=== PATIENT | female | born 1945 | race African-American/Black ===

== ENCOUNTER 2018-06-05 13:43 | Inpatient (IN) | payer OTHER ==
[~2018-06-05] VITALS: Ht 167.6 cm; Wt 130.0 kg
[2018-06-05] MEDS ORDERED: SODIUM CHLORIDE 0.9% 1,000 ML IV ONE (14:39)
[2018-06-05] MEDS ORDERED: ONDANSETRON HCL 4MG/2ML INJ IV STA (14:39)
[2018-06-05] MEDS ORDERED: HYDRALAZINE 20MG/ML VIAL IV ONE ×2 (14:45→17:00)
[2018-06-05 15:06] LABS: BASOPHILS % 0.9 % (0.0-2.0); EOSINOPHILS % 3.5 % (0.0-5.0); HEMATOCRIT. 47.6 % (36.0-48.0); HEMOGLOBIN. 16.3 g/dL (12.0-16.0); LYMPHOCYTES % 20.3 % (20.0-50.0); MEAN CORPUSCULAR HEMOGLOBIN 31.9 pg (28.0-32.0); MEAN CORPUSCULAR VOLUME 93.4 fL (81.0-99.0); MEAN PLATELET VOLUME 10.2 fl (7.4-10.4); MONOCYTES % 6.7 % (2.0-8.0); NEUTROPHILS % 68.6 % (40.0-76.0); PLATELET 195 x1000/uL (130-400); RED CELL DISTRIBUTION WIDTH 13.2 % (11.6-14.6)
[2018-06-05 15:10] LABS: CHLORIDE 106 mEq/L (98-107)
[2018-06-05 15:15] LABS: ETHANOL BLOOD < 10 mg/dL
[2018-06-05] MEDS ORDERED: MORPHINE SULFATE 4 MG/ML CPJ (NOT FOR IM USE) IV ONE (15:45)
[2018-06-05 17:03] LABS: CLARITY URINE CLEAR (CLEAR); COLOR URINE YELLOW (YELLOW); KETONES URINE NEGATIVE (NEGATIVE); LEUKOCYTE ESTERASE URINE NEGATIVE (NEGATIVE); NITRITE URINE NEGATIVE (NEGATIVE); OCCULT BLOOD URINE TRACE (NEGATIVE); PH URINE >=9.0 (4.5-8.0); PROTEIN URINE 3+ (NEGATIVE); SPECIFIC GRAVITY URINE 1.009 (1.005-1.030); UROBILINOGEN URINE 0.2 E.U./dL (0.2-1.0)
[2018-06-05 17:17] LABS: *AMPHETAMINES SCREEN URINE NEGATIVE (NEGATIVE); *BARBITURATES SCREEN URINE NEGATIVE (NEGATIVE); *BENZODIAZEPINES SCREEN URINE NEGATIVE (NEGATIVE); *COCAINE SCREEN URINE NEGATIVE (NEGATIVE); METHADONE URINE SCREEN NEGATIVE (NEGATIVE)
[2018-06-05 17:19] LABS: CANNABINOID URINE SCREEN NEGATIVE (NEGATIVE); OPIATES URINE SCREEN NEGATIVE (NEGATIVE); PHENCYCLIDINE URINE SCREEN NEGATIVE (NEGATIVE)
[2018-06-05] MEDS ORDERED: NICARDIPINE 50 MG in SODIUM CHLORIDE 0.9% 230 ML IV PRN ×2 (18:15→18:30)
[2018-06-05] MEDS ORDERED: NICARDIPINE 40MG/200ML PREMIX 200 ML IV PRN ×2 (18:26→19:52)
[2018-06-05] MEDS ORDERED: DOCUSATE SODIUM 100MG CAPSULE PO PRN (19:15)
[2018-06-05] MEDS ORDERED: ONDANSETRON HCL 4MG/2ML INJ IV PRN (19:15)
[2018-06-05] MEDS ORDERED: LISINOPRIL 5MG TABLET PO SCH (19:15)
[2018-06-05] MEDS ORDERED: CLONIDINE 0.1MG TABLET PO PRN (19:15)
[2018-06-05] MEDS ORDERED: ACETAMINOPHEN 325MG TABLET PO PRN (19:15)
[2018-06-05] MEDS ORDERED: AMLODIPINE 10MG TABLET PO SCH (19:15)
[2018-06-05] MEDS ORDERED: HYDROCODONE/ACETAMINOPHEN 5/325MG TABLET PO PRN (19:15)
[2018-06-05] MEDS ORDERED: ONDANSETRON HCL 4MG/2ML INJ ONE (20:43)
[2018-06-05] MEDS ORDERED: LISINOPRIL 20MG TABLET PO NR (20:45)
[2018-06-05] MEDS ORDERED: AMLODIPINE 10MG TABLET PO NR (20:45)
[2018-06-05 21:58] LABS: CREATINE KINASE MB FRACTION 2.3 ng/mL (0.5-3.6)
[2018-06-05 22:30] VITALS: BP 146/68
[2018-06-05] MEDS: HYDROMORPHONE HCL/PF 2MG/ML CPJ IV PRN (22:47)
[2018-06-05 23:00] VITALS: BP 129/48
[2018-06-05 23:30] VITALS: BP 131/59
[2018-06-06] VITALS (41 sets, daily range): BP systolic 91–184; BP diastolic 36–132
[2018-06-06] MEDS ORDERED: DEXTROSE 50% WATER 50ML SYRINGE IV PRN (00:30)
[2018-06-06] MEDS: HYDROMORPHONE HCL/PF 2MG/ML CPJ IV PRN ×3 (03:51→20:35)
[2018-06-06 05:58] LABS: BASOPHILS % 1.4 % (0.0-2.0); EOSINOPHILS % 0.3 % (0.0-5.0); HEMATOCRIT. 43.7 % (36.0-48.0); LYMPHOCYTES % 13.9 % (20.0-50.0); MEAN PLATELET VOLUME 10.2 fl (7.4-10.4); MONOCYTES % 5.9 % (2.0-8.0); NEUTROPHILS % 78.5 % (40.0-76.0); PLATELET 203 x1000/uL (130-400); RED BLOOD CELL COUNT 4.69 mill/uL (4.2-5.4); RED CELL DISTRIBUTION WIDTH 13.4 % (11.6-14.6)
[2018-06-06 06:22] LABS: CHLORIDE 106 mEq/L (98-107)
[2018-06-06 06:39] LABS: CREATINE KINASE 120 IU/L (26-192)
[2018-06-06 06:40] LABS: HDL CHOLESTEROL 55 mg/dL (40-59)
[2018-06-06 06:41] LABS: LDL CHOLESTEROL 216 mg/dL (5-100)
[2018-06-06 06:45] LABS: CREATINE KINASE MB FRACTION 4.6 ng/mL (0.5-3.6)
[2018-06-06] MEDS: BLOOD SUGAR DIAGNOSTIC STRIP TEST SCH ×4 (07:50→17:14)
[2018-06-06] MEDS: INSULIN LISPRO 100 UNITS/ML SUBCUT SCH ×3 (08:20→17:32)
[2018-06-06] MEDS ORDERED: AMLODIPINE 10MG TABLET PO SCH (09:00)
[2018-06-06] MEDS ORDERED: LISINOPRIL 5MG TABLET PO SCH (09:00)
[2018-06-06] MEDS ORDERED: PANTOPRAZOLE SODIUM 40 MG/VIAL IV SCH (11:00)
[2018-06-06] MEDS ORDERED: ATORVASTATIN CALCIUM 40MG TABLET PO SCH (21:00)
== END 2018-06-06 21:10 | disposition short-term general hospital (02) | DRG 305 ==
LOC: ER 13:43 → CVICU 18:47 → EDBEDREQ 18:54 → SUPCPDRO 19:13 → ENRESERV 20:31 → 7WST 06-06 16:21
PROVIDERS: ADMIT Hospitalist; ATTEND Hospitalist
DX: I16.9 Hypertensive crisis, unspecified (principal); Z68.42 Body mass index [BMI] 45.0-49.9, adult; I10 Essential (primary) hypertension; E78.5 Hyperlipidemia, unspecified; E11.9 Type 2 diabetes mellitus without complications
CPT/HCPCS: 36415; 71045; 80061; 80305; 80320; 82550; 82553; 82962; 84484; 93306; 93970; 99285; C9113; J0360; J1170; J1815; J2270; J2405; J3490; J7030; J7050; A4315; G0480

== ENCOUNTER 2018-11-08 15:49 | Emergency (ER) | payer OTHER ==
[~2018-11-08] VITALS: Ht 165.1 cm; Wt 125.0 kg
[2018-11-08 17:07] LABS: BASOPHILS % 0.9 % (0.0-2.0); HEMATOCRIT. 40.8 % (36.0-48.0); HEMOGLOBIN. 14.2 g/dL (12.0-16.0); LYMPHOCYTES % 11.5 % (20.0-50.0); MEAN CORPUSCULAR HEMOGLOBIN 31.9 pg (28.0-32.0); MEAN CORPUSCULAR VOLUME 91.5 fL (81.0-99.0); MEAN PLATELET VOLUME 10.1 fl (7.4-10.4); MONOCYTES % 6.3 % (2.0-8.0); NEUTROPHILS % 80.3 % (40.0-76.0); PLATELET 192 x1000/uL (130-400); RED BLOOD CELL COUNT 4.45 mill/uL (4.2-5.4); RED CELL DISTRIBUTION WIDTH 13.7 % (11.6-14.6)
[2018-11-08 17:12] LABS: PROTHROMBIN TIME 10.3 sec (9.6-11.0)
[2018-11-08 17:45] LABS: CHLORIDE 107 mEq/L (98-107)
[2018-11-08] MEDS ORDERED: HYDRALAZINE 20MG/ML VIAL IV ONE ×2 (18:15→20:00)
[2018-11-08] MEDS ORDERED: ONDANSETRON HCL 4MG/2ML INJ IV STA (18:29)
[2018-11-08] MEDS ORDERED: MORPHINE SULFATE 4 MG/ML CPJ (NOT FOR IM USE) IV STA (18:29)
[2018-11-08] MEDS ORDERED: AMLODIPINE 5MG TABLET PO ONE (20:00)
[2018-11-08 20:19] LABS: CREATINE KINASE 734 IU/L (26-192)
[2018-11-08] MEDS ORDERED: ACETAMINOPHEN WITH CODEINE 300/30MG TABLET PO ONE (21:30)
[2018-11-08] MEDS ORDERED: HYDROCODONE/ACETAMINOPHEN 5/325MG TABLET PO ONE (22:00)
[2018-11-08 22:02] VITALS: BP 195/92
== END 2018-11-08 21:45 | disposition short-term general hospital (02) ==
LOC: ER 15:49 → EDBEDREQ 16:42 → ER 21:45 → CANBEDREQ 22:37
DX: I16.1 Hypertensive emergency (principal); M25.552 Pain in left hip; M25.551 Pain in right hip; M62.82 Rhabdomyolysis; E11.9 Type 2 diabetes mellitus without complications; I10 Essential (primary) hypertension; Z86.73 Personal history of transient ischemic attack (TIA), and cerebral infarction without residual deficits
CPT/HCPCS: 36415; 70450; 71045; 72192; 73700; 80053; 82550; 82962; 84484; 85025; 85610; 93005; 96374; 96375; 96376; 99285; J0360; J2270; J2405

== ENCOUNTER 2019-03-22 12:07 | Emergency (ER) | payer OTHER ==
[~2019-03-22] VITALS: Ht 165.1 cm; Wt 130.0 kg
[2019-03-22 13:44] LABS: BASOPHILS % 0.9 % (0.0-2.0); EOSINOPHILS % 1.7 % (0.0-5.0); HEMOGLOBIN. 14.6 g/dL (12.0-16.0); LYMPHOCYTES % 15.3 % (20.0-50.0); MEAN CORPUSCULAR HEMOGLOBIN 32.4 pg (28.0-32.0); MEAN PLATELET VOLUME 9.1 fl (7.4-10.4); MONOCYTES % 4.5 % (2.0-8.0); NEUTROPHILS % 77.6 % (40.0-76.0); PLATELET 240 x1000/uL (130-400); RED BLOOD CELL COUNT 4.51 mill/uL (4.2-5.4); RED CELL DISTRIBUTION WIDTH 13.9 % (11.6-14.6)
[2019-03-22 13:46] LABS: CHLORIDE 105 mEq/L (98-107)
[2019-03-22] MEDS ORDERED: HYDRALAZINE 20MG/ML VIAL IV ONE ×2 (15:30→16:45)
[2019-03-22 18:27] VITALS: BP 209/98
== END 2019-03-22 18:51 | disposition home or self-care (01) ==
LOC: ER 12:20
DX: E11.649 Type 2 diabetes mellitus with hypoglycemia without coma (principal); L89.159 Pressure ulcer of sacral region, unspecified stage; I10 Essential (primary) hypertension; E78.00 Pure hypercholesterolemia, unspecified; M19.90 Unspecified osteoarthritis, unspecified site; Z79.4 Long term (current) use of insulin
CPT/HCPCS: 36415; 71045; 80048; 82962; 85025; 93005; 96374; 96376; 99284; J0360

== ENCOUNTER 2019-03-23 07:18 | Emergency (ER) | payer OTHER ==
[~2019-03-23] VITALS: Ht 167.6 cm; Wt 109.0 kg
[2019-03-23 09:00] VITALS: BP 189/99
[2019-03-23 09:05] LABS: CHLORIDE 105 mEq/L (98-107)
[2019-03-23 09:07] LABS: BASOPHILS % 0.7 % (0.0-2.0); EOSINOPHILS % 1.1 % (0.0-5.0); HEMATOCRIT. 40.1 % (36.0-48.0); HEMOGLOBIN. 13.9 g/dL (12.0-16.0); LYMPHOCYTES % 14.6 % (20.0-50.0); MEAN CORPUSCULAR HEMOGLOBIN 32.5 pg (28.0-32.0); MEAN CORPUSCULAR VOLUME 93.6 fL (81.0-99.0); MONOCYTES % 4.7 % (2.0-8.0); NEUTROPHILS % 78.9 % (40.0-76.0); PLATELET 236 x1000/uL (130-400); RED BLOOD CELL COUNT 4.28 mill/uL (4.2-5.4); RED CELL DISTRIBUTION WIDTH 13.9 % (11.6-14.6)
== END 2019-03-23 11:26 | disposition short-term general hospital (02) ==
LOC: ER 07:22
DX: E11.649 Type 2 diabetes mellitus with hypoglycemia without coma (principal); R41.82 Altered mental status, unspecified; I10 Essential (primary) hypertension; J45.909 Unspecified asthma, uncomplicated; Z79.84 Long term (current) use of oral hypoglycemic drugs; Z88.5 Allergy status to narcotic agent; Z88.0 Allergy status to penicillin; Z86.73 Personal history of transient ischemic attack (TIA), and cerebral infarction without residual deficits
CPT/HCPCS: 36415; 71045; 80053; 82962; 84484; 85025; 93005; 99285

== ENCOUNTER 2019-07-30 18:58 | Inpatient (IN) | payer OTHER ==
[~2019-07-30] VITALS: Ht 167.6 cm; Wt 99.8 kg
[2019-07-30] MEDS ORDERED: ONDANSETRON HCL 4MG/2ML INJ IV STA (19:16)
[2019-07-30] MEDS ORDERED: SODIUM CHLORIDE 0.9% 1,000 ML IV ONE (19:16)
[2019-07-30 20:03] LABS: BASOPHILS % 0.4 % (0.0-2.0); EOSINOPHILS % 0.9 % (0.0-5.0); HEMATOCRIT. 39.1 % (36.0-48.0); HEMOGLOBIN. 13.5 g/dL (12.0-16.0); LYMPHOCYTES % 9.8 % (20.0-50.0); MEAN CORPUSCULAR VOLUME 92.3 fL (81.0-99.0); MEAN PLATELET VOLUME 7.7 fl (7.4-10.4); MONOCYTES % 5.8 % (2.0-8.0); NEUTROPHILS % 83.1 % (40.0-76.0); PLATELET 417 x1000/uL (130-400); RED BLOOD CELL COUNT 4.23 mill/uL (4.2-5.4)
[2019-07-30 20:06] LABS: CHLORIDE 97 mEq/L (98-107)
[2019-07-30 20:07] LABS: INR 0.9; PROTHROMBIN TIME 10.2 sec (9.6-11.0)
[2019-07-30 20:10] LABS: ETHANOL BLOOD < 10 mg/dL
[2019-07-30 20:15] LABS: BG CARBOXYHEMOGLOBIN 0.6 % (0.5-1.5); BG DEOXYHEMOGLOBIN 18.9 % (0.0-5.0); BG FRACTION INSPIRED OXYGEN 2137; BG METHEMOGLOBIN 0.2 % (0.0-1.5); BG OXYGEN SATURATION 80.9 % (92.0-98.5); BG OXYHEMOGLOBIN 80.3 % (94.0-97.0); BG PCO2 32.5 mmHg (35.0-45.0); BG PH 7.467 (7.350-7.450); BG PO2 40.8 mmHg (75.0-100.0); BG SAMPLE SITE RIGHT RADIAL; BG TOTAL HEMOGLOBIN 13.7 g/dL (12.0-18.0); BG VENT MODE ROOM AIR
[2019-07-30 20:38] LABS: COLOR URINE DK YELLOW (YELLOW); KETONES URINE TRACE (NEGATIVE); LEUKOCYTE ESTERASE URINE 1+ (NEGATIVE); NITRITE URINE NEGATIVE (NEGATIVE); OCCULT BLOOD URINE NEGATIVE (NEGATIVE); PH URINE 5.5 (4.5-8.0); PROTEIN URINE 3+ (NEGATIVE); SPECIFIC GRAVITY URINE 1.029 (1.005-1.030); UROBILINOGEN URINE 0.2 E.U./dL (0.2-1.0)
[2019-07-30 20:39] LABS: CLARITY URINE HAZY (CLEAR)
[2019-07-30 20:47] LABS: *AMPHETAMINES SCREEN URINE NEGATIVE (NEGATIVE); *BARBITURATES SCREEN URINE NEGATIVE (NEGATIVE); *BENZODIAZEPINES SCREEN URINE NEGATIVE (NEGATIVE); *COCAINE SCREEN URINE NEGATIVE (NEGATIVE); METHADONE URINE SCREEN NEGATIVE (NEGATIVE)
[2019-07-30 20:48] LABS: CANNABINOID URINE SCREEN PRESUMTIVE POSITIVE (NEGATIVE); OPIATES URINE SCREEN PRESUMTIVE POSITIVE (NEGATIVE); PHENCYCLIDINE URINE SCREEN NEGATIVE (NEGATIVE)
[2019-07-31] MEDS: HYDRALAZINE 20MG/ML VIAL IV PRN (06:37)
[2019-07-31] MEDS ORDERED: CLONIDINE 0.1MG TABLET PO PRN (09:45)
[2019-07-31] MEDS ORDERED: ACETAMINOPHEN 325MG TABLET PO PRN (09:45)
[2019-07-31] MEDS ORDERED: ONDANSETRON HCL 4MG/2ML INJ IV PRN (09:45)
[2019-07-31 09:53] VITALS: BP 154/64
[2019-07-31] MEDS ORDERED: ENOXAPARIN 40MG/0.4ML SYR SUBCUT SCH (10:00)
[2019-07-31 10:26] VITALS: BP 154/64
[2019-07-31 10:55] VITALS: BP 154/64
[2019-07-31] MEDS ORDERED: AZITHROMYCIN 500 MG in DEXT 5% WATER 250 ML IV NR (11:30)
[2019-07-31] MEDS ORDERED: HYDROCODONE/ACETAMINOPHEN 5/325MG TABLET PO PRN (12:15)
[2019-07-31 12:17] VITALS: BP 186/83
[2019-07-31] MEDS: LEVOFLOXACIN 250MG PREMIX 50 ML IV SCH (13:35)
[2019-07-31] MEDS: SODIUM CHLORIDE 0.9% 1,000 ML IV SCH (13:36)
[2019-07-31] MEDS ORDERED: GLIP5TAB3 MT (15:15)
[2019-07-31] MEDS ORDERED: DILT120T13 PO (15:15)
[2019-07-31] MEDS ORDERED: METF-816 MT (15:15)
[2019-07-31] MEDS ORDERED: LIP40 MT (15:15)
[2019-07-31] MEDS ORDERED: ASPI-1497 PO (15:15)
[2019-07-31] MEDS ORDERED: METO1TAB26 PO (15:15)
[2019-07-31] MEDS ORDERED: LEVO137T2 MT (15:15)
[2019-07-31] MEDS ORDERED: DEXTROSE 50% WATER 50ML SYRINGE IV PRN (15:30)
[2019-07-31 16:36] VITALS: BP 181/81
[2019-07-31] MEDS: INSULIN LISPRO 100 UNITS/ML SUBCUT SCH ×2 (17:10→21:00)
[2019-07-31] MEDS: BLOOD SUGAR DIAGNOSTIC STRIP TEST SCH ×2 (17:32→21:00)
[2019-07-31 20:00] VITALS: BP 190/93
[2019-07-31] MEDS: ATORVASTATIN CALCIUM 40MG TABLET PO SCH (22:29)
[2019-07-31] MEDS: DILTIAZEM HCL 90MG CAPSULE SR 12HR PO SCH (22:29)
[2019-07-31] MEDS: METOPROLOL TARTRATE 50MG TABLET PO SCH (22:30)
[2019-07-31] MEDS: HYDROCHLOROTHIAZIDE 25MG TABLET PO SCH (22:30)
[2019-08-01] VITALS (7 sets, daily range): BP systolic 108–193; BP diastolic 62–89
[2019-08-01] MEDS: SODIUM CHLORIDE 0.9% 1,000 ML IV SCH ×3 (00:41→15:11)
[2019-08-01] MEDS: METFORMIN HCL 500MG TABLET PO SCH ×2 (06:36→16:53)
[2019-08-01] MEDS: BLOOD SUGAR DIAGNOSTIC STRIP TEST SCH ×4 (06:37→20:36)
[2019-08-01] MEDS: METOPROLOL TARTRATE 50MG TABLET PO SCH ×2 (06:37→14:30)
[2019-08-01] MEDS: GLIPIZIDE 5MG TABLET PO SCH ×2 (06:37→16:45)
[2019-08-01] MEDS: INSULIN LISPRO 100 UNITS/ML SUBCUT SCH ×4 (06:38→20:58)
[2019-08-01 06:51] LABS: BASOPHILS % 0.6 % (0.0-2.0); EOSINOPHILS % 2.9 % (0.0-5.0); HEMATOCRIT. 31.8 % (36.0-48.0); HEMOGLOBIN. 11.1 g/dL (12.0-16.0); LYMPHOCYTES % 14.8 % (20.0-50.0); MEAN CORPUSCULAR HEMOGLOBIN 32.1 pg (28.0-32.0); MEAN CORPUSCULAR VOLUME 91.5 fL (81.0-99.0); MEAN PLATELET VOLUME 7.6 fl (7.4-10.4); MONOCYTES % 6.4 % (2.0-8.0); NEUTROPHILS % 75.3 % (40.0-76.0); PLATELET 358 x1000/uL (130-400); RED BLOOD CELL COUNT 3.48 mill/uL (4.2-5.4); RED CELL DISTRIBUTION WIDTH 13.8 % (11.6-14.6)
[2019-08-01 07:25] LABS: CHLORIDE 101 mEq/L (98-107)
[2019-08-01 07:33] LABS: LDL CHOLESTEROL 59 mg/dL (5-100)
[2019-08-01 07:35] LABS: HDL CHOLESTEROL 52 mg/dL (40-59)
[2019-08-01] MEDS: DILTIAZEM HCL 90MG CAPSULE SR 12HR PO SCH ×2 (09:00→20:35)
[2019-08-01] MEDS ORDERED: ASPIRIN 81MG EC TABLET PO SCH (09:00)
[2019-08-01] MEDS ORDERED: AZITHROMYCIN 250 MG in DEXT 5% WATER 250 ML IV SCH (09:00)
[2019-08-01] MEDS ORDERED: LEVOTHYROXINE SODIUM 137MCG TABLET PO SCH (09:00)
[2019-08-01] MEDS: ENOXAPARIN 30MG/0.3ML SYR SUBCUT SCH ×2 (09:44→20:38)
[2019-08-01] MEDS: HYDROCHLOROTHIAZIDE 25MG TABLET PO SCH ×2 (09:52→20:35)
[2019-08-01] MEDS ORDERED: SODIUM HYPOCHLORITE SOLUTION (0.5%)FULL STRENGTH TOP SCH (12:00)
[2019-08-01] MEDS ORDERED: LIDOCAINE HCL/EPINEPHRINE 1%-EPI 1:100,000 20 ML VIAL INFIL SCH (13:00)
[2019-08-01] MEDS ORDERED: MORPHINE SULFATE 2 MG/ML CPJ (NOT FOR IM USE) IV PRN (13:00)
[2019-08-01] MEDS ORDERED: SODIUM HYPOCHLORITE 0.125% 473ML SOLUTION TOP SCH (13:00)
[2019-08-01] MEDS ORDERED: LIDOCAINE HCL/EPINEPHRINE 1%-EPI 1:100,000 30 ML VIAL INFIL SCH (13:00)
[2019-08-01] MEDS: LEVOFLOXACIN 250MG PREMIX 50 ML IV SCH (14:41)
[2019-08-01] MEDS ORDERED: IPRATROPIUM/ALBUTEROL 0.5-3(2.5)MG/3ML NEB HHN PRN (16:00)
[2019-08-01] MEDS: HYDRALAZINE 20MG/ML VIAL IV PRN (16:25)
[2019-08-01] MEDS ORDERED: AZTREONAM 2 GM in DEXT 5% WATER 100 ML IV SCH (18:00)
[2019-08-01] MEDS ORDERED: VANCOMYCIN 1 G PREMIX 200 ML IV SCH (18:00)
[2019-08-01] MEDS: ATORVASTATIN CALCIUM 40MG TABLET PO SCH (20:35)
== END 2019-08-01 21:55 | disposition short-term general hospital (02) | DRG 853 ==
LOC: ER 18:58 → 7EST 22:31 → EDBEDREQ 22:34 → EDBEDREQTM 22:34 → EDBEDREQ 07-31 00:18 → ENRESERV 07-31 07:47 → 5WST 08-01 04:25
PROVIDERS: ADMIT Internal Medicine; ATTEND Internal Medicine
PROC: 0QB10ZZ Excision of Sacrum, Open Approach (ICD-10-PCS; principal; 2019-08-01)
DX: A41.89 Other specified sepsis (principal); L89.154 Pressure ulcer of sacral region, stage 4; J12.89 Other viral pneumonia; J96.01 Acute respiratory failure with hypoxia; G81.94 Hemiplegia, unspecified affecting left nondominant side; M86.8X8 Other osteomyelitis, other site; E46 Unspecified protein-calorie malnutrition; F12.90 Cannabis use, unspecified, uncomplicated; B34.9 Viral infection, unspecified; D72.810 Lymphocytopenia; Z20.828 Contact with and (suspected) exposure to other viral communicable diseases; E11.65 Type 2 diabetes mellitus with hyperglycemia; I10 Essential (primary) hypertension; J45.909 Unspecified asthma, uncomplicated; Z99.3 Dependence on wheelchair; Z88.6 Allergy status to analgesic agent; Z88.0 Allergy status to penicillin; Z74.01 Bed confinement status; Z79.82 Long term (current) use of aspirin; Z79.84 Long term (current) use of oral hypoglycemic drugs; Z79.899 Other long term (current) drug therapy
CPT/HCPCS: 36415; 36600; 71045; 80053; 80061; 80305; 80320; 81003; 82375; 82805; 82962; 83605; 83880; 84134; 84443; 84484; 85025; 86850; 86900; 87070; 87075; 87077; 87186; 93005; 99291; J0360; J0456; J1650; J1956; J2270; J2405; J3370; J3490; J7030; J7060; G0480; U0003-CS

== ENCOUNTER 2019-08-10 14:56 | Emergency (ER) | payer OTHER ==
[~2019-08-10] VITALS: Ht 170.2 cm; Wt 90.0 kg
[~2019-08-10 14:56] MED LIST: ASPI-1497 PO; DILT120T13 PO; GLIP5TAB3 MT; LEVO137T2 MT; LIP40 MT; METF-816 MT; METO1TAB26 PO
[2019-08-10] MEDS ORDERED: SODIUM CHLORIDE 0.9% 1000ML BAG (SEPSIS BOLUS) IV ONE (16:00)
[2019-08-10] MEDS ORDERED: DEXTROSE 50% WATER 50ML SYRINGE IV ONE (16:00)
[2019-08-10 16:30] LABS: CLARITY URINE CLEAR (CLEAR); COLOR URINE YELLOW (YELLOW); KETONES URINE NEGATIVE (NEGATIVE); LEUKOCYTE ESTERASE URINE TRACE (NEGATIVE); NITRITE URINE NEGATIVE (NEGATIVE); OCCULT BLOOD URINE NEGATIVE (NEGATIVE); PROTEIN URINE 1+ (NEGATIVE); SPECIFIC GRAVITY URINE 1.012 (1.005-1.030)
[2019-08-10 16:38] LABS: BASOPHILS % 0.8 % (0.0-2.0); EOSINOPHILS % 1.9 % (0.0-5.0); HEMATOCRIT. 34.3 % (36.0-48.0); HEMOGLOBIN. 11.7 g/dL (12.0-16.0); LYMPHOCYTES % 10.4 % (20.0-50.0); MEAN CORPUSCULAR HEMOGLOBIN 31.5 pg (28.0-32.0); MEAN CORPUSCULAR VOLUME 92.7 fL (81.0-99.0); MEAN PLATELET VOLUME 7.3 fl (7.4-10.4); NEUTROPHILS % 80.9 % (40.0-76.0); PLATELET 438 x1000/uL (130-400); RED CELL DISTRIBUTION WIDTH 14.3 % (11.6-14.6)
[2019-08-10 16:45] LABS: CHLORIDE 101 mEq/L (98-107)
[2019-08-10 16:48] LABS: PARTIAL THROMBOPLASTIN TIME 27.3 sec (23.4-31.0); PROTHROMBIN TIME 10.4 sec (9.6-11.0)
[2019-08-10] MEDS ORDERED: MORPHINE SULFATE 4 MG/ML CPJ (NOT FOR IM USE) IV STA (21:38)
[2019-08-10] MEDS ORDERED: ONDANSETRON HCL 4MG/2ML INJ IV STA (21:38)
[2019-08-10 22:20] VITALS: BP 133/44
== END 2019-08-10 23:02 | disposition short-term general hospital (02) ==
LOC: ER 14:56
DX: L89.153 Pressure ulcer of sacral region, stage 3 (principal); E11.649 Type 2 diabetes mellitus with hypoglycemia without coma; I10 Essential (primary) hypertension; J45.909 Unspecified asthma, uncomplicated; E78.00 Pure hypercholesterolemia, unspecified; E66.9 Obesity, unspecified; Z68.31 Body mass index [BMI] 31.0-31.9, adult; Z79.84 Long term (current) use of oral hypoglycemic drugs; Z79.82 Long term (current) use of aspirin
CPT/HCPCS: 36415; 71045; 80053; 81003; 82962; 83605; 83880; 84145; 84484; 85025; 85610; 85730; 87040; 87086; 93005; 96361; 96374; 96375; 99285; J2270; J2405; J7030

== ENCOUNTER 2019-08-27 08:42 | Emergency (ER) | payer OTHER ==
[~2019-08-27] VITALS: Ht 162.6 cm; Wt 126.0 kg
[2019-08-27] MEDS ORDERED: ONDANSETRON HCL 4MG/2ML INJ IV STA (10:08)
[2019-08-27] MEDS ORDERED: KETOROLAC 30MG/ML VIAL IV STA (10:08)
[2019-08-27 10:25] LABS: BASOPHILS % 1.3 % (0.0-2.0); CHLORIDE 102 mEq/L (98-107); EOSINOPHILS % 0.5 % (0.0-5.0); HEMATOCRIT. 33.3 % (36.0-48.0); HEMOGLOBIN. 11.7 g/dL (12.0-16.0); LYMPHOCYTES % 9.8 % (20.0-50.0); MEAN CORPUSCULAR HEMOGLOBIN 32.8 pg (28.0-32.0); MEAN CORPUSCULAR VOLUME 93.4 fL (81.0-99.0); MEAN PLATELET VOLUME 8.2 fl (7.4-10.4); MONOCYTES % 4.6 % (2.0-8.0); NEUTROPHILS % 83.8 % (40.0-76.0); PLATELET 459 x1000/uL (130-400); RED BLOOD CELL COUNT 3.57 mill/uL (4.2-5.4); RED CELL DISTRIBUTION WIDTH 14.3 % (11.6-14.6)
[2019-08-27 10:39] LABS: PROTHROMBIN TIME 10.7 sec (9.6-11.0)
[2019-08-27 10:39] LABS: CLARITY URINE CLOUDY (CLEAR); COLOR URINE YELLOW (YELLOW); KETONES URINE NEGATIVE (NEGATIVE); LEUKOCYTE ESTERASE URINE 2+ (NEGATIVE); NITRITE URINE NEGATIVE (NEGATIVE); OCCULT BLOOD URINE NEGATIVE (NEGATIVE); PROTEIN URINE 2+ (NEGATIVE); SPECIFIC GRAVITY URINE 1.015 (1.005-1.030)
[2019-08-27] MEDS ORDERED: LEVOFLOXACIN 500MG PREMIX 100 ML IV ONE (12:15)
[2019-08-27] MEDS ORDERED: MAGNESIUM 2 G PREMIX 50 ML IV ONE (12:30)
[2019-08-27] MEDS ORDERED: IOHEXOL-300 100 ML BOTTLE ONE (13:03)
[2019-08-27] MEDS ORDERED: VANCOMYCIN 1 G PREMIX 200 ML IV SCH (13:30)
[2019-08-27] MEDS ORDERED: METOCLOPRAMIDE HCL 10MG/2ML VIAL IV ONE (14:00)
[2019-08-27] MEDS ORDERED: HYDRALAZINE 20MG/ML VIAL IV ONE (14:45)
[2019-08-27 15:34] VITALS: BP 182/87
== END 2019-08-27 18:14 | disposition short-term general hospital (02) ==
LOC: ER 08:54
DX: R10.9 Unspecified abdominal pain (principal); R11.2 Nausea with vomiting, unspecified; I10 Essential (primary) hypertension; L89.159 Pressure ulcer of sacral region, unspecified stage; L03.312 Cellulitis of back [any part except buttock and flank]; J45.909 Unspecified asthma, uncomplicated; E11.9 Type 2 diabetes mellitus without complications; Z79.82 Long term (current) use of aspirin; Z88.0 Allergy status to penicillin; Z88.5 Allergy status to narcotic agent; Z79.899 Other long term (current) drug therapy
CPT/HCPCS: 36415; 70450; 74177; 80053; 81003; 82962; 83690; 84484; 85025; 85610; 87077; 87086; 87186; 93005; 96365; 96368; 96375; 99285; J0360; J1885; J1956; J2405; J2765; J3370; J3475; Q9967

== ENCOUNTER 2019-11-25 16:05 | Emergency (ER) | payer OTHER ==
[~2019-11-25] VITALS: Ht 165.1 cm; Wt 91.0 kg
[2019-11-25] MEDS ORDERED: SODIUM CHLORIDE 0.9% 1,000 ML IV ONE (17:05)
[2019-11-25] MEDS ORDERED: ONDANSETRON HCL 4MG/2ML INJ IV STA ×2 (17:05→18:35)
[2019-11-25 18:29] LABS: CHLORIDE 103 mEq/L (98-107)
[2019-11-25 18:31] LABS: BASOPHILS % 0.4 % (0.0-2.0); EOSINOPHILS % 0.4 % (0.0-5.0); HEMATOCRIT. 37.3 % (36.0-48.0); HEMOGLOBIN. 12.6 g/dL (12.0-16.0); LYMPHOCYTES % 8.6 % (20.0-50.0); MEAN CORPUSCULAR HEMOGLOBIN 30.9 pg (28.0-32.0); MEAN CORPUSCULAR VOLUME 91.4 fL (81.0-99.0); MEAN PLATELET VOLUME 7.8 fl (7.4-10.4); MONOCYTES % 3.2 % (2.0-8.0); NEUTROPHILS % 87.4 % (40.0-76.0); PLATELET 360 x1000/uL (130-400); RED BLOOD CELL COUNT 4.08 mill/uL (4.2-5.4); RED CELL DISTRIBUTION WIDTH 13.7 % (11.6-14.6)
[2019-11-25] MEDS ORDERED: SODIUM CHLORIDE 0.9% 500 ML IV ONE (18:35)
[2019-11-25] MEDS ORDERED: FAMOTIDINE 20MG/2ML VIAL IV STA (18:35)
[2019-11-25 19:50] LABS: PROTHROMBIN TIME 10.8 sec (9.6-11.0)
[2019-11-25] MEDS ORDERED: ONDANSETRON HCL 4MG/2ML INJ IV ONE ×2 (20:15→21:00)
[2019-11-25] MEDS ORDERED: MORPHINE SULFATE 4 MG/ML CPJ (NOT FOR IM USE) IV ONE (22:00)
[2019-11-25] MEDS ORDERED: DILTIAZEM HCL 5MG/ML 5ML VIAL IV ONE (22:00)
[2019-11-25 23:26] VITALS: BP 176/88
== END 2019-11-26 00:10 | disposition short-term general hospital (02) ==
LOC: ER 16:05
DX: R07.89 Other chest pain (principal); I11.9 Hypertensive heart disease without heart failure; R11.2 Nausea with vomiting, unspecified; R10.30 Lower abdominal pain, unspecified; E11.9 Type 2 diabetes mellitus without complications; Z86.73 Personal history of transient ischemic attack (TIA), and cerebral infarction without residual deficits; Z88.0 Allergy status to penicillin; Z88.6 Allergy status to analgesic agent; Z79.82 Long term (current) use of aspirin; Z79.899 Other long term (current) drug therapy
CPT/HCPCS: 36415; 71045; 74176; 80053; 83605; 83690; 84484; 85025; 85610; 93005; 96361; 96374; 96375; 96376; 99285; J2270; J2405; J3490; J7030

== ENCOUNTER 2020-10-11 00:38 | Emergency (ER) | payer OTHER ==
[~2020-10-11] VITALS: Ht 167.6 cm; Wt 77.0 kg
[~2020-10-11 00:38] MED LIST changes: -METF-816 MT; +METF-874 MT
[2020-10-11] MEDS ORDERED: VANCOMYCIN 1 G PREMIX 200 ML IV ONE (01:30)
[2020-10-11] MEDS ORDERED: CEFTRIAXONE 1 G PREMIX 50 ML IV ONE (01:30)
[2020-10-11 02:10] LABS: CHLORIDE 105 mEq/L (98-107)
[2020-10-11 03:15] LABS: BASOPHILS % 0.6 % (0.0-2.0); EOSINOPHILS % 2.7 % (0.0-5.0); HEMATOCRIT. 32.7 % (36.0-48.0); HEMOGLOBIN. 11.3 g/dL (12.0-16.0); LYMPHOCYTES % 16.8 % (20.0-50.0); MEAN CORPUSCULAR HEMOGLOBIN 32.1 pg (28.0-32.0); MEAN PLATELET VOLUME 7.9 fl (7.4-10.4); NEUTROPHILS % 74.9 % (40.0-76.0); PLATELET 374 x1000/uL (130-400); RED BLOOD CELL COUNT 3.52 mill/uL (4.2-5.4); RED CELL DISTRIBUTION WIDTH 14.4 % (11.6-14.6)
[2020-10-11] MEDS ORDERED: HYDROCODONE/ACETAMINOPHEN 5/325MG TABLET PO NR (04:30)
[2020-10-11 06:12] VITALS: BP 176/77
== END 2020-10-11 06:34 | disposition short-term general hospital (02) ==
LOC: ER 00:53 → CANBEDREQ 06:43
DX: M79.604 Pain in right leg (principal); Z48.01 Encounter for change or removal of surgical wound dressing; Z88.0 Allergy status to penicillin; Z79.899 Other long term (current) drug therapy; Z88.5 Allergy status to narcotic agent
CPT/HCPCS: 36415; 71045; 80053; 83605; 84145; 84484; 85025; 85651; 86140; 87040; 93005; 96365; 96367; 99285; J0696; J3370

== ENCOUNTER 2020-11-17 19:40 | Emergency (ER) | payer OTHER ==
[~2020-11-17] VITALS: Ht 182.9 cm; Wt 118.0 kg
[2020-11-17 22:54] LABS: BASOPHILS % 1.1 % (0.0-2.0); EOSINOPHILS % 4.2 % (0.0-5.0); LYMPHOCYTES % 34.4 % (20.0-50.0); MEAN CORPUSCULAR VOLUME 92.9 fL (81.0-99.0); MEAN PLATELET VOLUME 7.2 fl (7.4-10.4); MONOCYTES % 6.9 % (2.0-8.0); NEUTROPHILS % 53.4 % (40.0-76.0); PLATELET 350 x1000/uL (130-400); RED BLOOD CELL COUNT 3.45 mill/uL (4.2-5.4); RED CELL DISTRIBUTION WIDTH 14.7 % (11.6-14.6)
[2020-11-17 22:59] LABS: CHLORIDE 106 mEq/L (98-107)
[2020-11-18] LABS: CLARITY URINE TURBID (CLEAR); COLOR URINE YELLOW (YELLOW); KETONES URINE NEGATIVE (NEGATIVE); LEUKOCYTE ESTERASE URINE 3+ (NEGATIVE); NITRITE URINE POSITIVE (NEGATIVE); OCCULT BLOOD URINE NEGATIVE (NEGATIVE); PH URINE >=9.0 (4.5-8.0); PROTEIN URINE 2+ (NEGATIVE); SPECIFIC GRAVITY URINE 1.015 (1.005-1.030); UROBILINOGEN URINE 0.2 E.U./dL (0.2-1.0)
[2020-11-18] MEDS ORDERED: CEFTRIAXONE 1 G PREMIX 50 ML IV ONE (00:15)
[2020-11-18] MEDS ORDERED: CEFTRIAXONE 1 G PREMIX 50 ML IV NR (02:15)
[2020-11-18 02:45] VITALS: BP 181/82
== END 2020-11-18 03:43 | disposition short-term general hospital (02) ==
LOC: ER 19:40
DX: Z04.89 Encounter for examination and observation for other specified reasons (principal); L89.154 Pressure ulcer of sacral region, stage 4; N39.0 Urinary tract infection, site not specified; D64.9 Anemia, unspecified; I10 Essential (primary) hypertension; M19.90 Unspecified osteoarthritis, unspecified site; Z86.73 Personal history of transient ischemic attack (TIA), and cerebral infarction without residual deficits; Z74.01 Bed confinement status; Z79.82 Long term (current) use of aspirin; Z88.5 Allergy status to narcotic agent; Z88.0 Allergy status to penicillin
CPT/HCPCS: 36415; 80053; 81003; 85025; 87040; 87077; 87086; 87186; 96365; 99284; J0696; A4315

== ENCOUNTER 2021-05-08 19:53 | Emergency (ER) | payer OTHER ==
[~2021-05-08] VITALS: Ht 175.3 cm; Wt 77.0 kg
[2021-05-08] MEDS ORDERED: SODIUM CHLORIDE 0.9% 1,000 ML IV ONE (20:30)
[2021-05-08 21:46] LABS: BASOPHILS % 0.8 % (0.0-2.0); EOSINOPHILS % 0.6 % (0.0-5.0); HEMATOCRIT. 37.2 % (36.0-48.0); HEMOGLOBIN. 12.6 g/dL (12.0-16.0); LYMPHOCYTES % 14.3 % (20.0-50.0); MEAN CORPUSCULAR VOLUME 88.6 fL (81.0-99.0); MEAN PLATELET VOLUME 6.7 fl (7.4-10.4); MONOCYTES % 6.1 % (2.0-8.0); NEUTROPHILS % 78.2 % (40.0-76.0); PLATELET 411 x1000/uL (130-400); RED CELL DISTRIBUTION WIDTH 13.6 % (11.6-14.6)
[2021-05-08 21:53] LABS: CHLORIDE 103 mEq/L (98-107)
[2021-05-08 23:45] LABS: CLARITY URINE CLOUDY (CLEAR); COLOR URINE YELLOW (YELLOW); KETONES URINE 1+ (NEGATIVE); LEUKOCYTE ESTERASE URINE 2+ (NEGATIVE); NITRITE URINE POSITIVE (NEGATIVE); OCCULT BLOOD URINE NEGATIVE (NEGATIVE); PROTEIN URINE 2+ (NEGATIVE); SPECIFIC GRAVITY URINE 1.021 (1.005-1.030); UROBILINOGEN URINE 0.2 E.U./dL (0.2-1.0)
[2021-05-09] MEDS ORDERED: CEFTRIAXONE 1 G PREMIX 50 ML IV ONE
[2021-05-09] MEDS ORDERED: CLONIDINE 0.1MG TABLET PO ONE (02:00)
[2021-05-09] MEDS ORDERED: POLYETHYLENE GLYCOL 3350 (17GM) 1 DOSE PACK PO ONE (02:30)
[2021-05-09 03:24] VITALS: BP 155/80
== END 2021-05-09 03:25 | disposition short-term general hospital (02) ==
LOC: ER 19:53 → CANBEDREQ 05-09 22:06
DX: N39.0 Urinary tract infection, site not specified (principal); I10 Essential (primary) hypertension; E78.00 Pure hypercholesterolemia, unspecified; E11.9 Type 2 diabetes mellitus without complications; Z20.822 Contact with and (suspected) exposure to COVID-19; Z88.0 Allergy status to penicillin; Z88.5 Allergy status to narcotic agent; Z79.82 Long term (current) use of aspirin; Z86.73 Personal history of transient ischemic attack (TIA), and cerebral infarction without residual deficits
CPT/HCPCS: 36415; 71045; 74176; 80053; 81003; 83690; 84484; 85025; 87086; 87426; 96361; 96365; 96366; 99285; J0696; J7030

== ENCOUNTER 2021-08-16 01:23 | Inpatient (IN) | payer MEDICARE, OTHER ==
[~2021-08-16] VITALS: Ht 157.5 cm; Wt 81.6 kg
[2021-08-16] MEDS ORDERED: ONDANSETRON HCL 4MG/2ML INJ IV STA (01:47)
[2021-08-16] MEDS ORDERED: FAMOTIDINE 20MG/2ML VIAL IV STA (01:47)
[2021-08-16] MEDS ORDERED: MORPHINE SULFATE 4 MG/ML CPJ (NOT FOR IM USE) IV STA (01:47)
[2021-08-16 02:49] LABS: BASOPHILS % 0.3 % (0.0-2.0); HEMATOCRIT. 34.1 % (36.0-48.0); HEMOGLOBIN. 11.4 g/dL (12.0-16.0); MEAN CORPUSCULAR HEMOGLOBIN 31.2 pg (28.0-32.0); MEAN CORPUSCULAR VOLUME 93.2 fL (81.0-99.0); MEAN PLATELET VOLUME 7.7 fl (7.4-10.4); MONOCYTES % 7.4 % (2.0-8.0); NEUTROPHILS % 77.3 % (40.0-76.0); PLATELET 241 x1000/uL (130-400); RED BLOOD CELL COUNT 3.66 mill/uL (4.2-5.4); RED CELL DISTRIBUTION WIDTH 14.1 % (11.6-14.6)
[2021-08-16 02:59] LABS: CHLORIDE 100 mEq/L (98-107)
[2021-08-16] MEDS ORDERED: FAMOTIDINE 20MG/2ML VIAL IV SCH (04:00)
[2021-08-16] MEDS ORDERED: CEFTRIAXONE 1 G PREMIX 50 ML IV SCH (05:45)
[2021-08-16] MEDS ORDERED: VANCOMYCIN 1G PREMIX 200 ML IV SCH (06:00)
[2021-08-16] MEDS ORDERED: LACTULOSE 20G/30ML UDC PO NR (10:30)
[2021-08-16] MEDS ORDERED: ONDANSETRON HCL 4MG/2ML INJ IV PRN (10:30)
[2021-08-16] MEDS: DOCUSATE SODIUM 250MG CAPSULE PO SCH (10:48)
[2021-08-16 11:45] VITALS: BP 141/72
[2021-08-16 12:00] VITALS: BP 151/69
[2021-08-16] MEDS ORDERED: TRAMADOL 50MG TABLET PO PRN (12:00)
[2021-08-16] MEDS: AMLODIPINE 10MG TABLET PO SCH (13:06)
[2021-08-16] MEDS: ENOXAPARIN 40MG/0.4ML SYR SUBCUT SCH (13:08)
[2021-08-16 16:29] VITALS: BP 100/57
[2021-08-16] MEDS ORDERED: NALOXONE HCL 0.4MG/ML VIAL IV PRN (17:45)
[2021-08-16 20:03] VITALS: BP 165/62
[2021-08-16] MEDS: FAMOTIDINE 20MG TABLET PO SCH (21:03)
[2021-08-17] VITALS: BP 165/70
[2021-08-17 04:00] VITALS: BP 176/72
[2021-08-17] MEDS: CLONIDINE 0.1MG TABLET PO PRN ×2 (06:27→10:04)
[2021-08-17 08:00] VITALS: BP 123/84
[2021-08-17] MEDS: DOCUSATE SODIUM 250MG CAPSULE PO SCH (09:02)
[2021-08-17] MEDS: AMLODIPINE 10MG TABLET PO SCH (09:03)
[2021-08-17 12:00] VITALS: BP 172/103
[2021-08-17] MEDS ORDERED: HYDRALAZINE HCL 100MG TABLET PO NR (12:30)
[2021-08-17] MEDS: ENOXAPARIN 40MG/0.4ML SYR SUBCUT SCH (13:12)
[2021-08-17] MEDS ORDERED: SORBITOL 70% SOLN 30ML PO NR (14:00)
[2021-08-17] MEDS: HYDRALAZINE HCL 100MG TABLET PO SCH ×2 (15:50→21:50)
[2021-08-17 16:00] VITALS: BP 164/82
[2021-08-17 20:00] VITALS: BP 139/70
[2021-08-17] MEDS: FAMOTIDINE 20MG TABLET PO SCH (21:50)
[2021-08-18] VITALS: BP 145/70
[2021-08-18 04:00] VITALS: BP 164/79
[2021-08-18] MEDS: HYDRALAZINE HCL 100MG TABLET PO SCH ×3 (06:11→22:35)
[2021-08-18 08:00] VITALS: BP 150/67
[2021-08-18] MEDS: DOCUSATE SODIUM 250MG CAPSULE PO SCH (08:28)
[2021-08-18] MEDS: AMLODIPINE 10MG TABLET PO SCH (08:28)
[2021-08-18 12:00] VITALS: BP 139/65
[2021-08-18] MEDS: ENOXAPARIN 40MG/0.4ML SYR SUBCUT SCH (12:49)
[2021-08-18 16:00] VITALS: BP 124/65
[2021-08-18 20:00] VITALS: BP 141/64
[2021-08-18] MEDS: ACETAMINOPHEN 325MG TABLET PO PRN (22:35)
[2021-08-18] MEDS: FAMOTIDINE 20MG TABLET PO SCH (22:35)
[2021-08-19] VITALS: BP 132/66
[2021-08-19 04:00] VITALS: BP 125/55
[2021-08-19] MEDS: ACETAMINOPHEN 325MG TABLET PO PRN ×2 (04:56→21:18)
[2021-08-19] MEDS: HYDRALAZINE HCL 100MG TABLET PO SCH ×3 (05:05→21:19)
[2021-08-19 08:00] VITALS: BP 115/54
[2021-08-19] MEDS: AMLODIPINE 10MG TABLET PO SCH (08:13)
[2021-08-19] MEDS: DOCUSATE SODIUM 250MG CAPSULE PO SCH (09:26)
[2021-08-19 12:00] VITALS: BP 117/52
[2021-08-19] MEDS: ENOXAPARIN 40MG/0.4ML SYR SUBCUT SCH (13:54)
[2021-08-19 16:00] VITALS: BP 145/86
[2021-08-19 20:00] VITALS: BP 146/64
[2021-08-19] MEDS: FAMOTIDINE 20MG TABLET PO SCH (21:18)
[2021-08-20] VITALS: BP 153/74
[2021-08-20 04:00] VITALS: BP 141/86
[2021-08-20] MEDS: ACETAMINOPHEN 325MG TABLET PO PRN ×2 (05:37→21:08)
[2021-08-20] MEDS: HYDRALAZINE HCL 100MG TABLET PO SCH ×3 (05:37→21:08)
[2021-08-20 08:00] VITALS: BP 133/67
[2021-08-20] MEDS: AMLODIPINE 10MG TABLET PO SCH (09:25)
[2021-08-20] MEDS: DOCUSATE SODIUM 250MG CAPSULE PO SCH (09:25)
[2021-08-20 12:00] VITALS: BP 139/64
[2021-08-20] MEDS: ENOXAPARIN 40MG/0.4ML SYR SUBCUT SCH (13:11)
[2021-08-20 16:00] VITALS: BP 145/69
[2021-08-20 20:00] VITALS: BP 146/71
[2021-08-20] MEDS: FAMOTIDINE 20MG TABLET PO SCH (21:07)
[2021-08-21] VITALS: BP_SYST 126; BP_SYST 146; BP_DIAS 56; BP_DIAS 71
[2021-08-21 04:00] VITALS: BP 138/61
[2021-08-21] MEDS: HYDRALAZINE HCL 100MG TABLET PO SCH ×3 (06:43→21:07)
[2021-08-21 08:00] LABS: BASOPHILS % 1.2 % (0.0-2.0); EOSINOPHILS % 7.6 % (0.0-5.0); HEMATOCRIT. 35.7 % (36.0-48.0); HEMOGLOBIN. 11.8 g/dL (12.0-16.0); LYMPHOCYTES % 26.3 % (20.0-50.0); MEAN CORPUSCULAR VOLUME 93.8 fL (81.0-99.0); MEAN PLATELET VOLUME 7.8 fl (7.4-10.4); MONOCYTES % 10.8 % (2.0-8.0); NEUTROPHILS % 54.1 % (40.0-76.0); PLATELET 277 x1000/uL (130-400); RED BLOOD CELL COUNT 3.81 mill/uL (4.2-5.4)
[2021-08-21 08:07] LABS: CHLORIDE 101 mEq/L (98-107)
[2021-08-21] MEDS: AMLODIPINE 10MG TABLET PO SCH (08:46)
[2021-08-21] MEDS: DOCUSATE SODIUM 250MG CAPSULE PO SCH (08:46)
[2021-08-21] MEDS: LACTULOSE 20G/30ML UDC PO PRN (14:01)
[2021-08-21] MEDS: ACETAMINOPHEN 325MG TABLET PO PRN (14:01)
[2021-08-21] MEDS: ENOXAPARIN 40MG/0.4ML SYR SUBCUT SCH (14:02)
[2021-08-21 20:00] VITALS: BP 141/71
[2021-08-21] MEDS: FAMOTIDINE 20MG TABLET PO SCH (21:05)
[2021-08-21] MEDS ORDERED: NA PHOS,M-B/NA PHOS,DI-BA ENEMA 118ML PR NR (21:30)
[2021-08-22] VITALS: BP 147/70
[2021-08-22 04:00] VITALS: BP 138/56
[2021-08-22] MEDS: HYDRALAZINE HCL 100MG TABLET PO SCH ×3 (06:30→21:05)
[2021-08-22 08:00] VITALS: BP 146/63
[2021-08-22] MEDS: DOCUSATE SODIUM 250MG CAPSULE PO SCH (09:24)
[2021-08-22] MEDS: AMLODIPINE 10MG TABLET PO SCH (09:24)
[2021-08-22 12:00] VITALS: BP 159/70
[2021-08-22] MEDS: ENOXAPARIN 40MG/0.4ML SYR SUBCUT SCH (14:32)
[2021-08-22 16:00] VITALS: BP 154/65
[2021-08-22 20:00] VITALS: BP 137/67
[2021-08-22] MEDS: FAMOTIDINE 20MG TABLET PO SCH (21:06)
[2021-08-23] VITALS: BP 174/80
[2021-08-23] MEDS: ACETAMINOPHEN 325MG TABLET PO PRN (00:30)
[2021-08-23] MEDS: CLONIDINE 0.1MG TABLET PO PRN (00:30)
[2021-08-23] MEDS: HYDRALAZINE HCL 100MG TABLET PO SCH ×3 (06:14→20:55)
[2021-08-23 08:00] VITALS: BP 134/64
[2021-08-23] MEDS: DOCUSATE SODIUM 250MG CAPSULE PO SCH (09:16)
[2021-08-23] MEDS: AMLODIPINE 10MG TABLET PO SCH (09:17)
[2021-08-23 12:00] VITALS: BP 118/70
[2021-08-23] MEDS: ENOXAPARIN 40MG/0.4ML SYR SUBCUT SCH (14:22)
[2021-08-23 16:00] VITALS: BP 134/60
[2021-08-23 20:00] VITALS: BP 150/75
[2021-08-23] MEDS: FAMOTIDINE 20MG TABLET PO SCH (20:55)
[2021-08-24] VITALS: BP 148/70
[2021-08-24 04:00] VITALS: BP 156/72
[2021-08-24] MEDS: HYDRALAZINE HCL 100MG TABLET PO SCH ×3 (06:26→21:05)
[2021-08-24] MEDS: ACETAMINOPHEN 325MG TABLET PO PRN ×2 (06:26→16:13)
[2021-08-24 08:00] VITALS: BP 124/82
[2021-08-24] MEDS: DOCUSATE SODIUM 250MG CAPSULE PO SCH (09:33)
[2021-08-24] MEDS: AMLODIPINE 10MG TABLET PO SCH (09:34)
[2021-08-24 12:00] VITALS: BP 127/78
[2021-08-24] MEDS: ENOXAPARIN 40MG/0.4ML SYR SUBCUT SCH (13:20)
[2021-08-24 16:00] VITALS: BP 128/56
[2021-08-24] MEDS ORDERED: TRAMADOL 50MG TABLET PO PRN (16:45)
[2021-08-24] MEDS ORDERED: HYDROCODONE/ACETAMINOPHEN 10/325MG TABLET PO PRN (17:00)
[2021-08-24 20:00] VITALS: BP 129/59
[2021-08-24] MEDS: FAMOTIDINE 20MG TABLET PO SCH (21:04)
[2021-08-24] MEDS: LACTULOSE 20G/30ML UDC PO PRN (21:05)
[2021-08-25] VITALS: BP 132/66
[2021-08-25 04:00] VITALS: BP 159/69
[2021-08-25] MEDS: HYDRALAZINE HCL 100MG TABLET PO SCH ×2 (05:46→16:03)
[2021-08-25 08:00] VITALS: BP 140/69
[2021-08-25] MEDS: DOCUSATE SODIUM 250MG CAPSULE PO SCH (08:26)
[2021-08-25] MEDS: AMLODIPINE 10MG TABLET PO SCH (08:28)
[2021-08-25] MEDS ORDERED: ENOXAPARIN 30MG/0.3ML SYR SUBCUT SCH (09:00)
[2021-08-25 12:00] VITALS: BP 129/65
[2021-08-25 16:00] VITALS: BP 133/63
[2021-08-25] MEDS ORDERED: NALOXONE HCL 0.4MG/ML VIAL IV PRN (16:00)
== END 2021-08-25 19:10 | disposition home health service (06) | DRG 579 ==
LOC: ER 01:23 → 6EST 05:53 → ENRESERV 07:56
PROVIDERS: ADMIT Internal Medicine; ATTEND Internal Medicine
PROC: 0QB10ZZ Excision of Sacrum, Open Approach (ICD-10-PCS; principal; 2021-08-20)
DX: L89.154 Pressure ulcer of sacral region, stage 4 (principal); E43 Unspecified severe protein-calorie malnutrition; E87.1 Hypo-osmolality and hyponatremia; J98.11 Atelectasis; K59.00 Constipation, unspecified; I10 Essential (primary) hypertension; K42.9 Umbilical hernia without obstruction or gangrene; E11.9 Type 2 diabetes mellitus without complications; E66.01 Morbid (severe) obesity due to excess calories; E78.00 Pure hypercholesterolemia, unspecified; E78.5 Hyperlipidemia, unspecified; Z68.32 Body mass index [BMI] 32.0-32.9, adult; Z88.0 Allergy status to penicillin; Z88.8 Allergy status to other drugs, medicaments and biological substances; Z86.73 Personal history of transient ischemic attack (TIA), and cerebral infarction without residual deficits; Z79.84 Long term (current) use of oral hypoglycemic drugs
CPT/HCPCS: 36415; 71045; 74176; 80048; 80053; 82040; 83605; 84134; 85025; 93005; 99285; J0696; J1650; J2270; J2405; J3490

== ENCOUNTER 2021-11-14 23:43 | Inpatient (IN) | payer MEDICARE, MEDICAID ==
[~2021-11-14] VITALS: Ht 167.6 cm; Wt 88.5 kg
[2021-11-15] MEDS ORDERED: SODIUM CHLORIDE 0.9% 1,000 ML IV ONE (00:30)
[2021-11-15 00:48] LABS: BASOPHILS % 0.7 % (0.0-2.0); EOSINOPHILS % 4.6 % (0.0-5.0); HEMATOCRIT. 24.3 % (36.0-48.0); HEMOGLOBIN. 8.3 g/dL (12.0-16.0); LYMPHOCYTES % 28.8 % (20.0-50.0); MEAN CORPUSCULAR HEMOGLOBIN 31.9 pg (28.0-32.0); MEAN CORPUSCULAR VOLUME 93.4 fL (81.0-99.0); MEAN PLATELET VOLUME 7.7 fl (7.4-10.4); MONOCYTES % 7.7 % (2.0-8.0); NEUTROPHILS % 58.2 % (40.0-76.0); PLATELET 239 x1000/uL (130-400)
[2021-11-15 00:53] LABS: CHLORIDE 98 mEq/L (98-107)
[2021-11-15 01:10] LABS: ETHANOL BLOOD < 10 mg/dL
[2021-11-15 01:39] LABS: CLARITY URINE CLEAR (CLEAR); COLOR URINE DARK YELLOW (YELLOW); KETONES URINE TRACE (NEGATIVE); LEUKOCYTE ESTERASE URINE 1+ (NEGATIVE); NITRITE URINE NEGATIVE (NEGATIVE); OCCULT BLOOD URINE NEGATIVE (NEGATIVE); PROTEIN URINE 1+ (NEGATIVE); SPECIFIC GRAVITY URINE 1.018 (1.005-1.030)
[2021-11-15 01:55] LABS: *AMPHETAMINES SCREEN URINE NEGATIVE (NEGATIVE); *BARBITURATES SCREEN URINE NEGATIVE (NEGATIVE); *BENZODIAZEPINES SCREEN URINE NEGATIVE (NEGATIVE); *COCAINE SCREEN URINE NEGATIVE (NEGATIVE); CANNABINOID URINE SCREEN NEGATIVE (NEGATIVE); METHADONE URINE SCREEN NEGATIVE (NEGATIVE); OPIATES URINE SCREEN PRESUMTIVE POSITIVE (NEGATIVE); PHENCYCLIDINE URINE SCREEN NEGATIVE (NEGATIVE)
[2021-11-15] MEDS: CEFTRIAXONE 1 G PREMIX 50 ML IV NR ×2 (02:28→03:00)
[2021-11-15 10:15] VITALS: BP 158/63
[2021-11-15 11:00] VITALS: BP 158/63
[2021-11-15] MEDS ORDERED: ACETAMINOPHEN 325MG TABLET PO PRN (11:15)
[2021-11-15] MEDS ORDERED: ONDANSETRON HCL 4MG/2ML INJ IV PRN (11:15)
[2021-11-15] MEDS ORDERED: NALOXONE HCL 0.4MG/ML VIAL IV PRN (12:30)
[2021-11-15] MEDS: SODIUM CHLORIDE 0.9% 1,000 ML IV SCH (13:22)
[2021-11-15 16:30] VITALS: BP 145/64
[2021-11-15] MEDS: TRAMADOL 50MG TABLET PO PRN (17:57)
[2021-11-15 20:00] VITALS: BP 154/74
[2021-11-16] VITALS: BP 105/78
[2021-11-16 04:00] VITALS: BP 119/46
[2021-11-16 08:00] VITALS: BP 148/56
[2021-11-16 10:57] LABS: BASOPHILS % 0.5 % (0.0-2.0); EOSINOPHILS % 4.8 % (0.0-5.0); HEMATOCRIT. 25.8 % (36.0-48.0); HEMOGLOBIN. 8.6 g/dL (12.0-16.0); LYMPHOCYTES % 11.6 % (20.0-50.0); MEAN CORPUSCULAR HEMOGLOBIN 31.3 pg (28.0-32.0); MEAN CORPUSCULAR VOLUME 93.9 fL (81.0-99.0); MEAN PLATELET VOLUME 8.2 fl (7.4-10.4); MONOCYTES % 6.3 % (2.0-8.0); NEUTROPHILS % 76.8 % (40.0-76.0); PLATELET 240 x1000/uL (130-400); RED BLOOD CELL COUNT 2.74 mill/uL (4.2-5.4); RED CELL DISTRIBUTION WIDTH 16.1 % (11.6-14.6)
[2021-11-16 10:58] LABS: CHLORIDE 105 mEq/L (98-107)
[2021-11-16 12:00] VITALS: BP 127/59
[2021-11-16] MEDS: SODIUM CHLORIDE 0.9% 1,000 ML IV SCH ×2 (14:46→20:34)
[2021-11-16 16:00] VITALS: BP 156/67
[2021-11-16 20:00] VITALS: BP 143/65
[2021-11-17] VITALS: BP 152/56
[2021-11-17 04:00] VITALS: BP 180/72
[2021-11-17] MEDS: AMLODIPINE 5MG TABLET PO SCH ×2 (07:52→21:56)
[2021-11-17 08:00] VITALS: BP 168/76
[2021-11-17 12:00] VITALS: BP 145/62
[2021-11-17 16:30] VITALS: BP 141/59
[2021-11-17] MEDS: SODIUM CHLORIDE 0.9% 1,000 ML IV SCH (17:40)
[2021-11-17 20:40] VITALS: BP 158/61
[2021-11-18 00:25] VITALS: BP 152/63
[2021-11-18 04:00] VITALS: BP 170/72
[2021-11-18] MEDS: SODIUM CHLORIDE 0.9% 1,000 ML IV SCH ×2 (06:30→21:35)
[2021-11-18 08:00] VITALS: BP 155/61
[2021-11-18] MEDS: AMLODIPINE 5MG TABLET PO SCH ×2 (09:26→21:35)
[2021-11-18] MEDS: TRAMADOL 50MG TABLET PO PRN (09:27)
[2021-11-18 12:00] VITALS: BP 165/64
[2021-11-18] MEDS ORDERED: HYDR-4009 MT (14:22)
[2021-11-18 16:00] VITALS: BP 155/74
[2021-11-18] MEDS ORDERED: LACTULOSE 20G/30ML UDC PO NR (16:11)
[2021-11-18 20:48] VITALS: BP 160/82
[2021-11-19 00:40] VITALS: BP 162/76
[2021-11-19 04:00] VITALS: BP 157/67
[2021-11-19 08:00] VITALS: BP 143/72
[2021-11-19] MEDS: AMLODIPINE 5MG TABLET PO SCH ×2 (09:01→21:04)
[2021-11-19] MEDS: SODIUM CHLORIDE 0.9% 1,000 ML IV SCH (09:02)
[2021-11-19 12:00] VITALS: BP 132/67
[2021-11-19 16:00] VITALS: BP 148/65
[2021-11-19 20:00] VITALS: BP 168/81
[2021-11-20] VITALS: BP 191/71
[2021-11-20] MEDS: SODIUM CHLORIDE 0.9% 1,000 ML IV SCH ×2 (03:43→12:30)
[2021-11-20 04:00] VITALS: BP 169/75
[2021-11-20 08:00] VITALS: BP 140/79
[2021-11-20] MEDS: AMLODIPINE 5MG TABLET PO SCH ×2 (09:27→20:22)
[2021-11-20 12:00] VITALS: BP 147/74
[2021-11-20 16:00] VITALS: BP 139/89
[2021-11-20 20:00] VITALS: BP 147/63
[2021-11-21] VITALS (7 sets, daily range): BP systolic 134–158; BP diastolic 64–81
[2021-11-21] MEDS: SODIUM CHLORIDE 0.9% 1,000 ML IV SCH ×2 (01:50→15:07)
[2021-11-21] MEDS: AMLODIPINE 5MG TABLET PO SCH ×2 (09:22→20:48)
[2021-11-21] MEDS ORDERED: LACTULOSE 20G/30ML UDC PO NR (14:15)
[2021-11-22] MEDS ORDERED: HYDR-4009 MT ×2 (19:25→19:35)
== END 2021-11-21 22:00 | disposition home health service (06) | DRG 70 ==
LOC: ER 11-15 00:48 → 7WST 11-15 04:04 → ENRESERV 11-15 08:49
PROVIDERS: ADMIT Internal Medicine Nephrology; ATTEND Internal Medicine Nephrology
DX: G93.41 Metabolic encephalopathy (principal); E43 Unspecified severe protein-calorie malnutrition; N17.0 Acute kidney failure with tubular necrosis; N39.0 Urinary tract infection, site not specified; E87.1 Hypo-osmolality and hyponatremia; E11.9 Type 2 diabetes mellitus without complications; E78.00 Pure hypercholesterolemia, unspecified; I10 Essential (primary) hypertension; D64.9 Anemia, unspecified; Z86.73 Personal history of transient ischemic attack (TIA), and cerebral infarction without residual deficits; Z88.0 Allergy status to penicillin; Z68.31 Body mass index [BMI] 31.0-31.9, adult
CPT/HCPCS: 36415; 74018; 80048; 80053; 80305; 80320; 81003; 82962; 83605; 84443; 84484; 85025; 93005; 99285; A6261; J0696; J2405; J7030; G0480

== ENCOUNTER 2021-12-26 17:35 | Inpatient (IN) | payer MEDICAID, MEDICARE ==
[~2021-12-26] VITALS: Ht 167.6 cm; Wt 86.6 kg
[~2021-12-26 17:35] MED LIST changes: -GLIP5TAB3 MT; +HYDR-4009 MT
[2021-12-26 19:29] LABS: CHLORIDE 104 mEq/L (98-107)
[2021-12-26 19:30] LABS: PROTHROMBIN TIME 10.9 sec (9.6-11.0)
[2021-12-26 19:34] LABS: BASOPHILS % 0.7 % (0.0-2.0); EOSINOPHILS % 4.1 % (0.0-5.0); HEMATOCRIT. 34.8 % (36.0-48.0); HEMOGLOBIN. 11.7 g/dL (12.0-16.0); LYMPHOCYTES % 23.9 % (20.0-50.0); MEAN CORPUSCULAR VOLUME 95.4 fL (81.0-99.0); MONOCYTES % 6.8 % (2.0-8.0); NEUTROPHILS % 64.5 % (40.0-76.0); PLATELET 328 x1000/uL (130-400); RED BLOOD CELL COUNT 3.64 mill/uL (4.2-5.4); RED CELL DISTRIBUTION WIDTH 14.9 % (11.6-14.6)
[2021-12-26] MEDS ORDERED: VANCOMYCIN 1G PREMIX 200 ML IV ONE (20:30)
[2021-12-26] MEDS ORDERED: GUAIFENESIN 200MG/10ML SUGAR FREE UDC PO PRN (22:30)
[2021-12-26] MEDS ORDERED: MAGNESIUM/ALUMINUM HYDROXIDE/SIMETHICONE 30ML UDC PO PRN (22:30)
[2021-12-26] MEDS ORDERED: ZOLPIDEM TARTRATE 5MG TABLET PO PRN (22:30)
[2021-12-26] MEDS ORDERED: DIPHENHYDRAMINE 50MG/ML VIAL IV PRN (22:30)
[2021-12-26] MEDS ORDERED: ONDANSETRON HCL 4MG/2ML INJ IV PRN (22:30)
[2021-12-26] MEDS ORDERED: ACETAMINOPHEN 325MG TABLET PO PRN ×2 (22:30)
[2021-12-26] MEDS: CLONIDINE 0.1MG TABLET PO PRN (22:40)
[2021-12-26] MEDS: ENOXAPARIN 40MG/0.4ML SYR SUBCUT SCH (22:47)
[2021-12-27 01:21] VITALS: BP 177/75
[2021-12-27] MEDS: CLONIDINE 0.1MG TABLET PO PRN ×2 (05:19→17:54)
[2021-12-27] MEDS: TRAMADOL 50MG TABLET PO PRN (05:30)
[2021-12-27] MEDS: SODIUM CHLORIDE 0.9% INJ 3ML FLUSH IVF SCH ×3 (06:00→21:06)
[2021-12-27 08:00] VITALS: BP 194/88
[2021-12-27] MEDS: ZINC SULFATE 220 MG ( 50 ) CAPSULE PO SCH (08:52)
[2021-12-27] MEDS: MULTIVITAMINS,THER W-MINERALS TABLET PO SCH (08:52)
[2021-12-27] MEDS: ASPIRIN 81MG EC TABLET PO SCH (08:52)
[2021-12-27] MEDS: ASCORBIC ACID 500 MG TABLET PO SCH (08:52)
[2021-12-27] MEDS: AMLODIPINE 5MG TABLET PO SCH ×2 (08:53→21:05)
[2021-12-27 12:00] VITALS: BP 142/73
[2021-12-27 16:00] VITALS: BP 182/89
[2021-12-27 20:00] VITALS: BP 145/70
[2021-12-27] MEDS: ATORVASTATIN CALCIUM 10MG TABLET PO SCH (21:04)
[2021-12-27] MEDS: ENOXAPARIN 40MG/0.4ML SYR SUBCUT SCH (22:38)
[2021-12-28] VITALS: BP 157/62
[2021-12-28 04:00] VITALS: BP 136/64
[2021-12-28] MEDS: SODIUM CHLORIDE 0.9% INJ 3ML FLUSH IVF SCH ×3 (05:35→21:51)
[2021-12-28 08:00] VITALS: BP 145/67
[2021-12-28] MEDS: AMLODIPINE 5MG TABLET PO SCH ×2 (09:08→20:44)
[2021-12-28] MEDS: ASPIRIN 81MG EC TABLET PO SCH (09:08)
[2021-12-28] MEDS: ASCORBIC ACID 500 MG TABLET PO SCH (09:08)
[2021-12-28] MEDS: ZINC SULFATE 220 MG ( 50 ) CAPSULE PO SCH (09:08)
[2021-12-28] MEDS: MULTIVITAMINS,THER W-MINERALS TABLET PO SCH (09:08)
[2021-12-28 12:00] VITALS: BP 134/62
[2021-12-28 16:00] VITALS: BP 129/60
[2021-12-28] MEDS ORDERED: BISACODYL 10MG SUPP PR PRN (16:45)
[2021-12-28] MEDS ORDERED: LACTULOSE 20G/30ML UDC PO PRN (16:45)
[2021-12-28] MEDS ORDERED: NALOXONE HCL 0.4MG/ML VIAL IV PRN (17:15)
[2021-12-28 20:00] VITALS: BP 171/66
[2021-12-28] MEDS: HYDROCORTISONE ACETATE 25MG SUPP PR SCH (20:43)
[2021-12-28] MEDS: ATORVASTATIN CALCIUM 10MG TABLET PO SCH (20:44)
[2021-12-28] MEDS: ENOXAPARIN 40MG/0.4ML SYR SUBCUT SCH (21:51)
[2021-12-29 00:50] VITALS: BP 172/75
[2021-12-29] MEDS: SODIUM CHLORIDE 0.9% INJ 3ML FLUSH IVF SCH ×2 (05:13→21:34)
[2021-12-29 06:55] VITALS: BP 168/74
[2021-12-29 08:00] VITALS: BP 144/62
[2021-12-29] MEDS: ASCORBIC ACID 500 MG TABLET PO SCH (09:18)
[2021-12-29] MEDS: MULTIVITAMINS,THER W-MINERALS TABLET PO SCH (09:18)
[2021-12-29] MEDS: ASPIRIN 81MG EC TABLET PO SCH (09:18)
[2021-12-29] MEDS: AMLODIPINE 5MG TABLET PO SCH ×2 (09:18→21:00)
[2021-12-29] MEDS: ZINC SULFATE 220 MG ( 50 ) CAPSULE PO SCH (09:18)
[2021-12-29] MEDS: HYDROCORTISONE ACETATE 25MG SUPP PR SCH ×2 (09:22→21:00)
[2021-12-29 12:00] VITALS: BP 133/63
[2021-12-29 16:00] VITALS: BP 135/69
[2021-12-29 20:00] VITALS: BP 146/71
[2021-12-29] MEDS: ATORVASTATIN CALCIUM 10MG TABLET PO SCH (21:00)
[2021-12-29] MEDS: ENOXAPARIN 40MG/0.4ML SYR SUBCUT SCH (21:34)
[2021-12-30] VITALS: BP 158/75
[2021-12-30 04:00] VITALS: BP 163/75
[2021-12-30] MEDS: TRAMADOL 50MG TABLET PO PRN (04:57)
[2021-12-30] MEDS: SODIUM CHLORIDE 0.9% INJ 3ML FLUSH IVF SCH ×3 (05:39→22:00)
[2021-12-30 08:00] VITALS: BP 153/77
[2021-12-30] MEDS: ASCORBIC ACID 500 MG TABLET PO SCH (09:43)
[2021-12-30] MEDS: ASPIRIN 81MG EC TABLET PO SCH (09:46)
[2021-12-30] MEDS: AMLODIPINE 5MG TABLET PO SCH ×2 (09:46→21:49)
[2021-12-30] MEDS: MULTIVITAMINS,THER W-MINERALS TABLET PO SCH (09:46)
[2021-12-30] MEDS: ZINC SULFATE 220 MG ( 50 ) CAPSULE PO SCH (09:47)
[2021-12-30] MEDS: HYDROCORTISONE ACETATE 25MG SUPP PR SCH ×2 (09:47→21:49)
[2021-12-30 12:00] VITALS: BP 127/73
[2021-12-30 16:00] VITALS: BP 152/69
[2021-12-30 20:00] VITALS: BP 155/79
[2021-12-30] MEDS: ATORVASTATIN CALCIUM 10MG TABLET PO SCH (21:49)
[2021-12-30] MEDS: ENOXAPARIN 40MG/0.4ML SYR SUBCUT SCH (21:50)
[2021-12-31] VITALS (7 sets, daily range): BP systolic 115–170; BP diastolic 69–87
[2021-12-31] MEDS: CLONIDINE 0.1MG TABLET PO PRN (05:24)
[2021-12-31] MEDS: SODIUM CHLORIDE 0.9% INJ 3ML FLUSH IVF SCH ×2 (05:31→14:00)
[2021-12-31] MEDS: HYDROCORTISONE ACETATE 25MG SUPP PR SCH (09:00)
[2021-12-31] MEDS: ZINC SULFATE 220 MG ( 50 ) CAPSULE PO SCH (09:02)
[2021-12-31] MEDS: ASPIRIN 81MG EC TABLET PO SCH (09:02)
[2021-12-31] MEDS: MULTIVITAMINS,THER W-MINERALS TABLET PO SCH (09:02)
[2021-12-31] MEDS: ASCORBIC ACID 500 MG TABLET PO SCH (09:02)
[2021-12-31] MEDS: AMLODIPINE 5MG TABLET PO SCH (09:04)
[2021-12-31] MEDS: TRAMADOL 50MG TABLET PO PRN (15:42)
== END 2021-12-31 19:45 | DRG 579 ==
LOC: ER 17:35 → EDBEDREQ 21:40 → EDBEDREQTM 21:40 → ENRESERV 23:07 → 6EST 12-27 01:03
PROVIDERS: ADMIT Internal Medicine; ATTEND Internal Medicine
PROC: 0KBP0ZZ Excision of Left Hip Muscle, Open Approach (ICD-10-PCS; principal; 2021-12-30)
PROC: 0KBN0ZZ Excision of Right Hip Muscle, Open Approach (ICD-10-PCS; 2021-12-30)
DX: L89.154 Pressure ulcer of sacral region, stage 4 (principal); E43 Unspecified severe protein-calorie malnutrition; K62.89 Other specified diseases of anus and rectum; K59.00 Constipation, unspecified; E11.9 Type 2 diabetes mellitus without complications; I10 Essential (primary) hypertension; R62.7 Adult failure to thrive; E78.00 Pure hypercholesterolemia, unspecified; Z68.30 Body mass index [BMI] 30.0-30.9, adult; Z88.0 Allergy status to penicillin; Z88.8 Allergy status to other drugs, medicaments and biological substances; Z74.01 Bed confinement status; Z79.899 Other long term (current) drug therapy; Z86.73 Personal history of transient ischemic attack (TIA), and cerebral infarction without residual deficits
CPT/HCPCS: 36415; 71045; 74176; 80053; 82040; 82962; 83605; 84134; 84484; 85025; 97162; 99285; J1650; J2405; J3370

== ENCOUNTER 2024-02-17 15:51 | Emergency (ER) | payer MEDICARE, OTHER ==
[~2024-02-17] VITALS: Ht 167.6 cm; Wt 130.0 kg
[~2024-02-17 15:51] MED LIST changes: +METF-1150 MT; -METF-874 MT
[2024-02-17 16:16] VITALS: O2SAT 98
[2024-02-17 18:07] LABS: BASOPHILS % 0.2 % (0.0-2.0); HEMATOCRIT. 44.1 % (36.0-48.0); HEMOGLOBIN. 14.6 g/dL (12.0-16.0); LYMPHOCYTES % 12.3 % (20.0-50.0); MEAN CORPUSCULAR HEMOGLOBIN 31.2 pg (28.0-32.0); MEAN CORPUSCULAR HGB CONC 33.1 g/dL (31.0-37.0); MEAN CORPUSCULAR VOLUME 94.2 fL (81.0-99.0); MEAN PLATELET VOLUME 9.3 fl (7.4-10.4); MONOCYTES % 5.4 % (2.0-8.0); NEUTROPHILS % 82.1 % (40.0-76.0); PLATELET 262 x1000/uL (130-400); RED BLOOD CELL COUNT 4.68 mill/uL (4.2-5.4); RED CELL DISTRIBUTION WIDTH 13.5 % (11.6-14.6); WHITE BLOOD COUNT 14.8 x1000/uL (4.5-11.0)
[2024-02-17 18:16] LABS: CARBON DIOXIDE 29 mEq/L (21-32); CHLORIDE 103 mEq/L (98-107); POTASSIUM 3.7 mEq/L (3.5-5.1); SODIUM 139 mEq/L (136-145)
[2024-02-17 18:17] LABS: CALCIUM 9.7 mg/dL (8.7-10.4)
[2024-02-17 18:22] LABS: CREATININE 1.2 mg/dL (0.6-1.0); GLUCOSE 125 mg/dL (70-105); UREA NITROGEN BLOOD 15 mg/dL (9-23)
[2024-02-17 18:23] LABS: ALANINE AMINOTRANSFERASE < 7 IU/L (10-49)
[2024-02-17 18:24] LABS: ALBUMIN 4.2 g/dL (3.2-4.8); ASPARTATE AMINOTRANSFERASE 16 IU/L (<34); BILIRUBIN DIRECT 0.2 mg/dL (<=3.0); BILIRUBIN TOTAL 0.6 mg/dL (0.1-1.0); PROTEIN TOTAL 8.4 g/dL (6.0-8.3); TROPONIN I HIGH SENSITIVITY 21 ng/L (3.0-34)
[2024-02-17] MEDS: METOPROLOL SUCCINATE 50MG ER TABLET PO STA (21:46)
[2024-02-17] MEDS: HYDRALAZINE HCL 10MG TABLET PO ONE (21:46)
[2024-02-17] MEDS: ACETAMINOPHEN 500MG TABLET PO ONE (21:46)
[2024-02-17] MEDS ORDERED: CLONIDINE 0.1MG TABLET PO ONE (23:00)
[2024-02-18 00:58] LABS: CLARITY URINE CLEAR (CLEAR); COLOR URINE YELLOW (YELLOW); GLUCOSE URINE NEGATIVE (NEGATIVE); KETONES URINE 1+ (NEGATIVE); LEUKOCYTE ESTERASE URINE NEGATIVE (NEGATIVE); NITRITE URINE NEGATIVE (NEGATIVE); OCCULT BLOOD URINE 1+ (NEGATIVE); PROTEIN URINE 4+ (NEGATIVE); SPECIFIC GRAVITY URINE 1.021 (1.005-1.030)
[2024-02-18] MEDS: HYDRALAZINE 20MG/ML VIAL IV ONE (01:27)
[2024-02-18 01:55] LABS: SQUAMOUS EPITHELIAL CELL URINE RARE /lpf (RARE/1+)
[2024-02-18 01:58] LABS: BACTERIA URINE NONE SEEN; WBC URINE 0-2 /hpf (0-2)
[2024-02-18 04:02] VITALS: BP 167/72; PULSE 64; RESP 14; TEMP 36.72516; O2SAT 98
== END 2024-02-18 04:17 | disposition short-term general hospital (02) ==
LOC: ER 15:51 → EDBEDREQ 16:31 → ER 02-18 04:17
DX: R53.1 Weakness (principal); I50.9 Heart failure, unspecified; I11.0 Hypertensive heart disease with heart failure; E11.9 Type 2 diabetes mellitus without complications; E03.9 Hypothyroidism, unspecified; I16.0 Hypertensive urgency; Z88.0 Allergy status to penicillin; Z88.5 Allergy status to narcotic agent; Z86.73 Personal history of transient ischemic attack (TIA), and cerebral infarction without residual deficits; Z79.890 Hormone replacement therapy; Z79.84 Long term (current) use of oral hypoglycemic drugs; Z79.82 Long term (current) use of aspirin; Z79.899 Other long term (current) drug therapy; Z20.822 Contact with and (suspected) exposure to COVID-19
CPT/HCPCS: 99285; 71045; 80076; 80048; 85025; 84484; 36415; 96374; 87426; 81003; J0360

== ENCOUNTER 2024-12-31 12:18 | Emergency (ER) | payer OTHER ==
[~2024-12-31] VITALS: Ht 165.1 cm; Wt 65.0 kg
[2024-12-31 12:26] VITALS: O2SAT 97
[2024-12-31 14:30] LABS: HEMATOCRIT. 42.0 % (36.0-48.0); HEMOGLOBIN. 14.0 g/dL (12.0-16.0); MEAN PLATELET VOLUME 9.9 fl (7.4-10.4); PLATELET 232 x1000/uL (130-400); RED BLOOD CELL COUNT 4.50 mill/uL (4.2-5.4); RED CELL DISTRIBUTION WIDTH 14.1 % (11.6-14.6)
[2024-12-31] MEDS: CLONIDINE 0.1MG TABLET PO ONE (14:37)
[2024-12-31] MEDS: ONDANSETRON HCL 4MG/2ML INJ IV ONE (14:38)
[2024-12-31 14:54] LABS: CREATININE 1.0 mg/dL (0.6-1.0); LYMPHOCYTES % MANUAL 3.0 % (20.0-60.0); MONOCYTES % MANUAL 2.0 % (2.0-8.0); NEUTROPHILS % MANUAL 95.0 % (45.0-75.0); UREA NITROGEN BLOOD 20 mg/dL (9-23)
[2024-12-31 14:55] LABS: PLATELET ESTIMATE NORMAL
[2024-12-31 14:56] LABS: ASPARTATE AMINOTRANSFERASE 21 IU/L (<34); BILIRUBIN TOTAL 0.5 mg/dL (0.1-1.0); PROTEIN TOTAL 8.2 g/dL (6.0-8.3)
[2024-12-31] MEDS: LABETALOL 5MG/ML 4ML INJ IV NR (16:01)
[2024-12-31] MEDS: LABETALOL 5MG/ML 4ML INJ IV ONE (17:16)
[2024-12-31 20:09] LABS: CLARITY URINE CLEAR (CLEAR); COLOR URINE YELLOW (YELLOW); GLUCOSE URINE NEGATIVE (NEGATIVE); KETONES URINE 3+ (NEGATIVE); LEUKOCYTE ESTERASE URINE NEGATIVE (NEGATIVE); NITRITE URINE NEGATIVE (NEGATIVE); OCCULT BLOOD URINE 1+ (NEGATIVE); PH URINE 5.5 (4.5-8.0); PROTEIN URINE 4+ (NEGATIVE); SPECIFIC GRAVITY URINE 1.020 (1.005-1.030); UROBILINOGEN URINE 0.2 E.U./dL (0.2-1.0)
[2024-12-31 20:33] LABS: BACTERIA URINE NONE SEEN; RBC URINE 0-2 /hpf (0-2); SQUAMOUS EPITHELIAL CELL URINE RARE /lpf (RARE/1+); WBC URINE NONE SEEN /hpf (0-2)
[2024-12-31] MEDS: NITROGLYCERIN OINT 1GM/INCH UDPKT TD NR (22:23)
[2024-12-31] MEDS: TRAMADOL 50MG TABLET PO NR (22:24)
[2025-01-01 00:07] LABS: TROPONIN I HIGH SENSITIVITY 23 ng/L (3.0-34)
[2025-01-01 00:21] VITALS: BP 156/81; PULSE 74; RESP 12; TEMP 37.2; O2SAT 96
== END 2025-01-01 00:47 | disposition short-term general hospital (02) ==
LOC: ER 12:23 → EDBEDREQ 01-01 00:04 → EDBEDREQTM 01-01 00:04 → ENRESERV 01-01 00:46 → ER 01-01 00:47 → CANBEDREQ 01-01 00:49
DX: R10.9 Unspecified abdominal pain (principal); I11.0 Hypertensive heart disease with heart failure; I50.9 Heart failure, unspecified; R51.9 Headache, unspecified; Z79.899 Other long term (current) drug therapy; Z86.73 Personal history of transient ischemic attack (TIA), and cerebral infarction without residual deficits; Z88.0 Allergy status to penicillin; Z88.5 Allergy status to narcotic agent
CPT/HCPCS: 99285; 96374; 70450; 71045; 96375; 80053; 81003; 83880; 83605; 83690; 85025; 84484; 93005; 96376; 36415; J3490; J2405; A4606